=== PATIENT | male | born 1930 | race Caucasian/White ===

== ENCOUNTER 2019-02-10 12:41 | Observation (INO) ==
[2019-02-10 13:20] LABS: Hematocrit 45.4 % (37.5-50.1); Hemoglobin 15.2 g/dL (12.9-16.9); Mean Corpuscular HGB Conc 33.5 g/dL (31.6-35.5); Mean Corpuscular Hemoglobin 31.1 pg (28.0-33.3); Mean Corpuscular Volume 92.8 fL (83.0-100.0); Mean Platelet Volume 10.4 fL (9.4-12.4); Platelet Count 156 K/mcL (140-400); Red Blood Count 4.89 M/mcL (4.19-5.50); White Blood Count 8.1 K/mcL (4.3-11.1)
[2019-02-10 13:30] LABS: INR 1.5; Prothrombin Time 17.1 Seconds (9.4-12.1)
[2019-02-10 13:33] LABS: Activated Partial Thrombo Time 35.3 Seconds (26.0-36.0)
[2019-02-10 13:44] LABS: BUN/Creatinine Ratio 21 (6-26); Blood Urea Nitrogen 23 mg/dL (8-23); Calcium 9.4 mg/dL (8.6-10.3); Carbon Dioxide 22 mEq/L (23-29); Chloride 107 mEq/L (98-107); Glucose 97 mg/dL (70-105); Osmolality,Calculated 292 (280-300); Potassium 4.6 mEq/L (3.5-5.1); Sodium 139 mEq/L (136-145); Troponin I < 0.03 ng/mL (< 0.04); eGFR For African Americans > 60 (> 60); eGFR For Non-African Americans > 60 (> 60)
[2019-02-10] MEDS ORDERED: Acetaminophen 325 MG TABLET PO PRN (14:23)
[2019-02-10] MEDS ORDERED: Ondansetron 4 MG/2 ML VIAL IVP PRN (14:23)
[2019-02-10] MEDS ORDERED: Naloxone 0.4 MG/ML INJ IVP PRN (14:23)
[2019-02-10] MEDS ORDERED: *HR* HYDROcodone/Acet 5/325 mg TABLET PO PRN (14:23)
[2019-02-10] MEDS: Apixaban 5 MG TABLET PO SCH (20:32)
[2019-02-11 05:20] LABS: Chol/HDL Ratio 2.5 (0-4.9)
[2019-02-11] MEDS: Apixaban 5 MG TABLET PO SCH (08:34)
[2019-02-11] MEDS ORDERED: amLODIPine 5 MG TABLET PO SCH (09:00)
[2019-02-11] MEDS ORDERED: Cholecalciferol (D-3) 1,000 UNIT (25MCG) TABLET PO SCH (09:00)
[2019-02-11] MEDS ORDERED: Vitamin B Complex/Vit C/Vit E 1 EACH TABLET PO SCH (09:00)
[2019-02-11] MEDS ORDERED: Multivit/Ca/Min/Fe/FA 1 TAB TABLET PO SCH (09:00)
[2019-02-11] MEDS ORDERED: Isovue-370 500 ML BOTTLE IVP ONE (09:38)
[2019-02-11 11:46] VITALS: BP 145/81
== END 2019-02-11 13:17 | disposition home or self-care (01) ==
LOC: 3BNU 12:41 → EMEROOARM 12:41 → 3BNU 15:00
PROVIDERS: ADMIT Internal Medicine; ATTEND Internal Medicine